=== PATIENT | male | born 2000 | race Caucasian/White ===

== ENCOUNTER → 2018-04-03 13:41 | Outpatient (CLI) | payer BC, SELFPAY ==
--- NOTE | 2018-04-03 13:44 | RAD_ITS ---
STUDY: X-RAY - RIGHT KNEE REASON FOR EXAM: Twisting injury 5 weeks ago, pain. TECHNIQUE: 4 view(s) of the knee. COMPARISON: Radiographs 07/09/2017. FINDINGS: Normal visualized distal femur. Normal visualized proximal tibia and fibula. Normal proximal tibiofibular articulation. Normal medial femorotibial compartment. Normal lateral femorotibial compartment. Normal patellofemoral articulation. The soft tissue structures are unremarkable. RAD/Knee 4 or More Views IMPRESSION: Normal x-ray examination of the right knee. Electronically Signed: Deniz Michael MD at 13:41 EDT Tel , Service support ,
== END ==
PROVIDERS: Family Provider Pediatrics; PCP Pediatrics; Visit Provider Orthopaedic Surgery
DX: M25.561 Pain in right knee (principal)
CPT/HCPCS: 73564

== ENCOUNTER 2018-05-21 09:31 | Day surgery (SDC) | payer BC, OTHER, SELFPAY ==
[2018-05-21] VITALS (7 sets, daily range): BP systolic 100–128; BP diastolic 48–55; PULSE 58–71; RESP 16–18; TEMP 36.3–36.9; O2SAT 95–100; BMI 27.3
[2018-05-21] MEDS: Cefazolin 2 GM in 0.9% Normal Saline 100 ML IV (12:55)
[2018-05-21] MEDS: Bupiv/Epi 0.5% Mpf 30 ML Vial (13:35)
[2018-05-21] MEDS: Mupirocin Ointment 22gm Tube 1 APPLIC (13:38)
--- NOTE | 2018-05-21 13:39 | DCINST_ITS ---
Discharge Diet: No Restrictions - ttwb right leg knee hinged immobilizer open 0- 40 when seated, locked in extension during ambulation and at night, remove dressing in 4 days and apply bandaids to incision sites and may get incision wet at that time, call with concerns Discharge Activity: May Not Drive May shower in (days): 1 Ice area for (Minutes): 20 - Every hour while awake. Weight Bearing Status: Weight bearing as tolerated Keep extremity elevated above heart level: Operative Extremity Call your doctor if your incision/area has: Continuous Slow Oozing, Sudden Increased Bleeding, Increased Pain/ Swelling, Increased Redness, Foul Smelling Discharge Call your doctor if you observe: Fever of 101 or Higher, Coldness, Increased Pain, Numbness or Tingling, Change in Color, Calf discomfort Allergies/Adverse Reactions: Allergies codeine Allergy (Verified 05/14/18 08:46) Other Medications to take at Discharge Magnesium Oxide [Mag-Ox 400] 400 mg PO DAILY 02/15/17 Melatonin [Melatin] 3 mg PO QHS 02/15/17 Zyrtec 10 mg PO DAILY 02/15/17 Primary Care Physician: Pradeep Chavez MD [Primary Care Provider] - Test Results: Test results from this visit will be discussed in further detail at your follow- up appointment, if applicable. Please Follow Up With: Rose Pandya, - [phone]
--- NOTE | 2018-05-21 13:39 | PCM.OPRPT ---
Report of Operation Date of Procedure: 05/21/18 Pre-Operative Diagnosis: right knee medial meniscus tear Post-Operative Diagnosis: same Surgery/Procedure Performed:: right knee medial meniscus repair with 2 blanco and nephew fast fix devices Type of Anesthesia:: General Anesthesiologist: Nabeel Lozano Estimated Blood Loss (mL): min Fluids Replaced: 1100mll r Description of Procedure: Preop note Patient is a 17-year-old male with continued right medial knee pain with locking and instability. MRI confirmed a medial meniscus tear. Risks benefits and alternatives surgery discussed with patient. Risks including but not limited to blood loss, blood clot, infection, neurovascular injury, failure procedure, loss of life and loss of limb. Family is aware would like proceed with right knee arthroscopy repair is indicated. Operative note Patient seen and examined preoperative holding area. Right knee was marked. Patient brought to the operating placed supine on the operating table. Signing, anesthesia, antibiotics for Mr. The right knee was prepped and draped in usual sterile fashion with a tourniquet around his upper thigh. All bony prominence well-padded SCDs placed on his contralateral limb. We marked out her incisions for anterior lateral anterior medial portal placement. With timeout was performed. We then re-elevated the leg exsanguinated the leg and tourniquet was raised her pressure of 250 torr. We created her anterior lateral portal with 11 blade. We get a diagnostic arthroscopy. The patellofemoral joint was in place the most anterior medial joint line created anterior medial portal under direct visualization. We then probed the meniscus which was unstable at the posterior horn. There is a slight tear that went into the posterior horn into the root. We then were able to visualize the ACL and PCL were present within the notch the lateral meniscus was intact and stable to probing. We then repaired the posterior horn meniscus after rasping initially placed to reverse curved Blanco & Nephew devices also inside suture repairs into the cyst we then reassessed the meniscus which was stable. We then microfracture the notch to get bleeding into the need to help with the repair. The knee was irrigated comes amounts of sterile saline. The portals were closed with interrupted 4-0 nylon sutures. Sterile dressings were applied the portals were closed with sorry were injected with 1/4% bupivacaine with epi 10 cc. Again sterile dressings were applied a brace locked in extension was applied. Patient will be toe-touch weightbearing okay from 0-40? range of motion. Patient tolerated procedure well was transferred to recovery room in stable condition. Next Postoperative note Toe-touch weightbearing right leg Call with increased pain numbness tingling or further issues arise Pharmacy has prescriptions Follow-up in 2 weeks This note was generated with [employer] dictation software. It may contain incorrect words, spelling, and punctuation that were not noted in checking the note before signing.
--- NOTE | 2018-05-21 16:28 | SUR.PHASEII ---
AT 1605, ATTEMPTED TO AMBULATE USING CRUTCHES, BECAME DIZZY, DIAPHORETIC UPON STANDING, ASKED TO LAY DOWN. RESTING NOW, FEELING BETTER.
== END 2018-05-21 17:33 | disposition home or self-care (01) ==
LOC: SDC 09:33 → AC 09:33
PROVIDERS: Family Provider Pediatrics; PCP Pediatrics; Visit Provider Orthopaedic Surgery
PROC: (CPT 29870; principal; 2018-05-21 11:40)
DX: S83.241A Other tear of medial meniscus, current injury, right knee, initial encounter (principal); X58.XXXA Exposure to other specified factors, initial encounter
CPT/HCPCS: 29882; J7120; J2405

== ENCOUNTER 2020-08-28 18:48 | Emergency (ER) | payer BC, SELFPAY ==
[2020-08-28 18:50] VITALS: BP 160/85; PULSE 100; RESP 18; TEMP 36.4; O2SAT 98; BMI 34.3
--- NOTE | 2020-08-28 19:18 | ED.DCSUM_ITS ---
- ER Visit Summary Date of Service: 08/28/20 Chief Complaint: Low back pain History of Present Illness: The patient is a 20 M who presents with back pain that began today. Patient states he was helping a friend lift buckets of concrete when he felt pain in his back. Patient states the pain is over the upp er lumbar area. Patient states the pain is constant and dull but sharp with certain movements. Patient denies any radiation of the pain. Patient states the pain is worse with movement. Patient states the pain is better when he remains still. Patient states he has been taking ibuprofen which has been helping. Patient denies any paresthesias or weakness. Patient denies any saddle anesthesia. Patient denies any bowel or bladder changes. Physical Examination: Vital signs are stable. Patient is afebrile. Patient is in no acute distress. Musculoskeletal exam reveals tenderness over the upper lumbar paraspinal muscles. There is some mild midline tenderness. There is no edema or ecchymosis. There is no bony crepitance or step-off. Range of motion was slightly limited in all motions of the lumbar spine secondary to pain. Strength is 5/5 bilaterally lower extremities. There are no sensory deficits noted. Deep tendon reflexes are 2+/4 bilaterally in the lower extremities. Straight leg raises were negative. Emergency Department Course and Treatment: Patient was advised that this is most likely muscular strain. Patient was given a prescription for Naprosyn. Patient was instructed to follow-up with his primary care physician in 5 to 7 days. Patient understood and was agreeable with the plan. All questions were answered. Disposition: Discharge home Impression: Acute lumbar strain This note was generated with [employer] dictation software. It may contain incorrect words, spelling, and punctuation that were not noted in review of the chart prior to signing ED Disposition - Plan for ED Patient: Disposition: Home or Assisted Living Diagnosis: Acute lumbar myofascial strain Instructions: ED Back Sprain/Strain Prescriptions: Naproxen [Naprosyn] 500 mg PO BID PRN #20 tab Prescription Printed Referrals: Pradeep Chavez MD [Primary Care Provider] - 5-7 Days
[2020-08-28] MEDS: Naproxen 250 MG Tablet 500 MG PO (19:37)
[2020-08-28 19:38] VITALS: RESP 16
== END 2020-08-28 19:38 | disposition home or self-care (01) ==
LOC: ED 19:37
PROVIDERS: Emergency Provider Emergency Medicine; PCP Family Medicine
DX: S39.012A Strain of muscle, fascia and tendon of lower back, initial encounter (principal); X50.0XXA Overexertion from strenuous movement or load, initial encounter; Y93.9 Activity, unspecified; Y92.9 Unspecified place or not applicable; Y99.9 Unspecified external cause status
CPT/HCPCS: 99283